=== PATIENT | female | born 1965 | race Caucasian/White ===

== ENCOUNTER → 2016-07-10 | Outpatient (CLI) | payer BC ==
[~2016-07-10] MED LIST: ATV/1 PO; MEDR5TAB PO
== END | disposition home or self-care (01) ==
LOC: C.PAPS 14:44
PROVIDERS: ATTEND Obstetrics & Gynecology
DX: N92.0 Excessive and frequent menstruation with regular cycle (principal)

== ENCOUNTER → 2016-07-10 | Outpatient (CLI) | payer BC | END | disposition home or self-care (01) | LOC: C.PATHSPEC 13:35 | PROVIDERS: ATTEND Obstetrics & Gynecology | DX: N92.0 Excessive and frequent menstruation with regular cycle (principal) ==

== ENCOUNTER → 2016-07-16 | Outpatient (CLI) | payer BC ==
[2016-07-16 17:38] LABS: URINE APPEARANCE CLEAR (CLEAR); URINE BILIRUBIN NEG (NEG); URINE COLOR YELLOW; URINE NITRITE NEG (NEG); URINE SPECIFIC GRAVITY 1.004 (1.000-1.030); UROBILINOGEN NEG (NEG)
[2016-07-16 17:42] LABS: MANUAL MICROSCOPIC REQUIRED? NO; REVIEW REQ? NO
== END | disposition home or self-care (01) ==
LOC: C.LAB1850 17:09
PROVIDERS: ATTEND Obstetrics & Gynecology
DX: R39.9 Unspecified symptoms and signs involving the genitourinary system (principal)

== ENCOUNTER → 2016-08-28 | Day surgery (SDC) | payer BC ==
[2016-08-24 15:39] VITALS: Ht 165.1 cm; Wt 102.3 kg
[~2016-08-28] VITALS: Ht 165.1 cm; Wt 102.3 kg
[~2016-08-28] MED LIST changes: +LIDOCAINE HCL 2% 2 ML VIAL (20MG/ML) ONE; +MIDAZOLAM HCL 1 MG/ML 2ML VIAL ONE; +PROPOFOL IV EMULSION 10 MG/ML 20 ML VIAL IV ONE
[2016-08-28 13:39] VITALS: TEMP 36.8
--- NOTE | 2016-08-28 14:40 | Endo History and Physical ---
History & Physical Date of Service: August 28, 2016. Chief Complaint: screening Referring Physician: Dr. Johnathan Teresa History of Present Illness For colonoscopy Past Surgical History Hx Cardiac Surgery: No Hx Internal Defibrillator: No Hx Pacemaker: No Hx Abdominal Surgery: Yes (, APPY, TONY) Hx of Implantable Prosthesis: No Hx Post-Op Nausea and Vomiting: No Hx Cancer Surgery: No Hx Thoracic Surgery: No Hx Orthopedic: No Hx Urinary Tract Surgery: No Family History IBD Social History Smoking Status: Never Smoker Hx Substance Use: No Hx Alcohol Use: No Allergies Coded Allergies: Naproxen (Verified Allergy, Unknown, HIVES, 08/24/16) NAPROXYN SODIUM IS OKAY Shrimp (Verified Allergy, Unknown, HIVES AND SWELLING, 08/24/16) Current Medications Reported Home Medications Medications Dose Route/Sig Max Daily Dose Days Date Category Provera (Medroxyprogesterone Acetate) 5 Mg Tab 5 Mg PO UD 08/24/16 Reported Ativan (Lorazepam) 1 Mg Tab 1 Mg PO Q6H PRN 08/24/16 Reported Vital Signs Weight (Kilograms): 102.27 Height (Feet): 5 Height (Inches): 5 Date Time Temp Pulse Resp B/P Pulse Ox O2 Delivery O2 Flow Rate FiO2 08/28/16 13:39 36.8 89 20 124/76 96 Room Air Physical Exam General Appearance: + obese Respiratory/Chest: Respiratory effort: no dyspnea Cardiovascular: Heart Auscultation: RRR Abdomen: Inspection & Palpation: soft (For screening colonoscopy)
--- NOTE | 2016-08-28 14:58 | Discharge Instructions ---
Endoscopy Patient Instructions Date / Procedure(s) Performed August 28, 2016. Colonoscopy Allergy Information Coded Allergies: Naproxen (Verified Allergy, Unknown, HIVES, 08/24/16) NAPROXYN SODIUM IS OKAY Shrimp (Verified Allergy, Unknown, HIVES AND SWELLING, 08/24/16) Discharge Date / Findings August 28, 2016. Normal colon Medication Instructions Restart Stopped Medication(s): resume meds Reported Home Medications Medications Dose Route/Sig Max Daily Dose Days Date Category Provera (Medroxyprogesterone Acetate) 5 Mg Tab 5 Mg PO UD 08/24/16 Reported Ativan (Lorazepam) 1 Mg Tab 1 Mg PO Q6H PRN 08/24/16 Reported Provider Instructions Activity Restrictions - No exercising or heavy lifting for 24 hours. - Do not drink alcohol the day of the procedure. - Do not drive a car or operate machinery until the day after the procedure. - Do not make any important decisions or sign important papers in 24 hours after the procedure. Following Day: - Return to full activity which may include returning to work/school. Diet Start your diet with liquids and light foods (jello, soup, juice, toast). Then eat your usual diet if not nauseated. Treatment For Common After Affects For mild abdominal pain, bloating, or excessive gas: - Rest - Eat lightly - Lie on right side Follow-Up Information Follow-up with Dr. Johnathan Teresa as scheduled Anesthesia Information What You Should Know You have had a procedure that required some medicine to reduce anxiety and discomfort. This treatment is called moderate sedation. After receiving the treatment, you may be sleepy, but you will be able to breathe on your own. The effects of the treatment may last for several hours. Follow these instructions along with Activity/Diet recommendations noted above: * Do NOT do anything where dizziness or clumsiness would be dangerous. * Rest quietly at home today, then you can be up and about tomorrow. * Have a responsible person stay with you the rest of today. * You may have had an I.V. today. If so, you may take the dressing off later today. Recommendations Call your doctor if: * Trouble breathing * Continuous vomiting for more than 24 hours * Temperature above 101 degrees * Severe abdominal pain or bloating * Pain not relieved by pain medicine ordered * There is increased drainage or redness from any incision * A large amount of rectal bleeding greater than 2-3 tablespoons. (If you had a polyp/s removed or have hemorrhoids, a small amount of blood - from the rectum is to be expected.) * You have any unanswered questions or concerns. IN THE EVENT OF A SERIOUS EMERGENCY, GO TO THE NEAREST EMERGENCY ROOM Your discharge instructions were prepared by provider Ilan Wiley. Patient Instructions Signature Page Beverley Kulkarni Patient (or Guardian) Signature/Date: I have read and understand the instructions given to me by my caregivers. Caregiver/RN/Doctor Signature/Date: The above-named patient and/or guardian has received patient instructions on this date. + Original Patient Signature Page (only) stays with chart. Please make copy for patient.
--- NOTE | 2016-08-28 15:01 | GI REPORT ---
Procedure Date: 08/28/2016 2:37 PM Procedure: Colonoscopy Indications: Screening for colorectal malignant neoplasm Medicines: Midazolam 2 mg IV, Propofol total dose 350 mg IV, Lidocaine 40 mg IV Complications: No immediate complications. Estimated Blood Loss: Estimated blood loss: none. Procedure: Pre-Anesthesia Assessment: - Prior to the procedure, a History and Physical was performed, and patient medications, allergies and sensitivities were reviewed. The patient's tolerance of previous anesthesia was reviewed. - The risks and benefits of the procedure and the sedation options and risks were discussed with the patient. All questions were answered and informed consent was obtained. After I obtained informed consent, the scope was passed under direct vision. Throughout the procedure, the patient's blood pressure, pulse, and oxygen saturations were monitored continuously. The On-site loaner was introduced through the anus and advanced to the cecum, identified by appendiceal orifice and ileocecal valve. The colonoscopy was performed without difficulty. The patient tolerated the procedure well. The quality of the bowel preparation was good. Findings: The entire examined colon appeared normal. Impression: - The entire examined colon is normal. - No specimens collected. Recommendation: - Discharge patient to home (ambulatory). - Continue present medications. - Repeat colonoscopy in 10 years for screening purposes. - Return to primary care physician PRN. Ilan Wiley M.D. Ilan Wiley MD 08/28/2016 3:00:48 PM This report has been signed electronically. Note Initiated On: 08/28/2016 2:37 PM I attest to the content of the Intraoperative Record and orders documented therein, exceptions below
[2016-08-28 15:28] VITALS: BP 108/86; PULSE 82; O2SAT 88
--- NOTE | 2016-08-28 15:34 | Anesthesiology Progress Note ---
Anesthesia Post Op Note Date & Time August 28, 2016 at 15:34 Vital Signs Pain Intensity: 0 Vital Signs Past 12 Hours Date Time Temp Pulse Resp B/P Pulse Ox O2 Delivery O2 Flow Rate FiO2 08/28/16 15:28 82 20 108/86 88 Room Air 08/28/16 15:20 88 20 114/76 92 Room Air 08/28/16 15:16 87 20 117/80 98 Room Air 08/28/16 15:05 93 20 118/68 93 Room Air 08/28/16 13:39 36.8 89 20 124/76 96 Room Air Notes Mental Status: alert / awake / arousable, participated in evaluation Pt Amnestic to Procedure: Yes Nausea / Vomiting: adequately controlled Pain: adequately controlled Airway Patency, RR, SpO2: stable & adequate BP & HR: stable & adequate Hydration State: stable & adequate Anesthetic Complications: no major complications apparent
== END | disposition home or self-care (01) ==
LOC: C.GI 13:04
PROVIDERS: ATTEND Internal Medicine Gastroenterology
DX: Z12.11 Encounter for screening for malignant neoplasm of colon (principal); F41.9 Anxiety disorder, unspecified; Z91.013 Allergy to seafood; Z90.89 Acquired absence of other organs; Z90.49 Acquired absence of other specified parts of digestive tract; E66.9 Obesity, unspecified; Z68.37 Body mass index [BMI] 37.0-37.9, adult

== ENCOUNTER → 2017-02-25 | Outpatient (CLI) | payer BC ==
[~2017-02-25] MED LIST changes: -LIDOCAINE HCL 2% 2 ML VIAL (20MG/ML) ONE; -MIDAZOLAM HCL 1 MG/ML 2ML VIAL ONE; -PROPOFOL IV EMULSION 10 MG/ML 20 ML VIAL IV ONE
[2017-02-25 13:38] LABS: HEMATOCRIT 43.9 % (37-47); MEAN CELL VOLUME 89.8 fL (80-100); MEAN CORPUSCULAR HEMOGLOBIN 29.2 pg (25-34); MEAN CORPUSCULAR HGB CONC 32.6 g/dl (32-36); MEAN PLATELET VOLUME 10.9 fL (7.4-10.4); PLATELET COUNT 315 K/uL (130-400); RED BLOOD COUNT 4.89 M/uL (4.2-5.4); WHITE BLOOD COUNT 8.96 K/uL (4.8-10.8)
== END | disposition home or self-care (01) ==
LOC: C.LAB1850 11:26
PROVIDERS: ATTEND Obstetrics & Gynecology
DX: N93.9 Abnormal uterine and vaginal bleeding, unspecified (principal)

== ENCOUNTER → 2017-06-15 | Outpatient (CLI) | payer BC ==
[~2017-06-15] MED LIST changes: +GADAVIST IV PRN
[2017-06-15 10:42] LABS: BLOOD UREA NITROGEN 15 mg/dl (7-18); CREATININE 0.85 mg/dl (0.60-1.20)
--- NOTE | 2017-06-15 10:57 | DIAGNOSTIC IMAGING REPORT ---
PITUITARY ONLY COMBO HISTORY: 51 years-old Female HX BENIGN NEOPLASM OF PITUITARY GLAND follow-up study in a patient with known pituitary lesion. Patient reports she has had a lesion of the pituitary since at least 2002. Associated headaches with dizziness and lightheadedness. COMPARISON: No comparison study is available at time of dictation. MRI the brain from outside facility dated 08/22/2012 report only was submitted for review. Impression #2 of that report reads: A 5 mm area of decreased enhancement within the superior aspect of the pituitary gland suggests microadenoma. TECHNIQUE: Multiplanar multisequence MRI of the brain utilizing pituitary mass protocol was obtained both with and without the use of 10 mL Gadavist. FINDINGS: The large [id number] lactation coordinator localizer images demonstrate no gross abnormality. The corpus callosum, brainstem, optic chiasm and cerebellar hemispheres appear unremarkable the sagittal T1 series. Mild degenerative changes of the imaged cervical spine. Sagittal T1 series are motion degraded. No acute intracranial hemorrhage, midline shift or abnormal extra-axial collections identified. Mastoid air cells are clear. Minimal mucosal thickening of the ethmoid air cells. The orbits are unremarkable. Scalp, calvarium and soft tissues are also within normal limits. Within the superior aspect of the central pituitary gland anterior to the infundibulum there is a 5 x 3 x 4 mm lesion which demonstrates intermediate T1 and T2 signal, nicely seen on image 11 series 2, image 27 series 5 and image 4 series 7 and lastly on image 9 of series 8. On the dynamic postcontrast images, this lesion demonstrates slightly decreased contrast enhancement compared to the remainder of the normal pituitary gland, which is isointense on the delayed sequences. No additional abnormal lesions of the pituitary gland is identified. There is no additional abnormal intra-axial or extra-axial enhancement. IMPRESSION: 1. 5 mm round lesion of the superior aspect of the pituitary gland, anterior to the infundibulum demonstrates delayed isointense enhancement compared to the remainder of the normal pituitary gland. 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 2. No additional abnormal intra-axial or extra-axial enhancement. 3. No acute intracranial abnormality. The above report was generated using voice recognition software. It may contain grammatical, syntax or spelling errors. Electronically signed by: Lucas Cabral M.D. 06/15/2017 10:56 AM Dictated Date/Time: 06/15/2017 10:46 AM
== END | disposition home or self-care (01) ==
LOC: C.MRI 09:38
PROVIDERS: ATTEND Nurse Practitioner
DX: Z86.018 Personal history of other benign neoplasm (principal); R51 Headache; E23.6 Other disorders of pituitary gland